=== PATIENT | male | born 1975 | race Caucasian/White ===

== ENCOUNTER 2017-01-11 14:18 | Emergency (ER) | payer MEDICAID, OTHER ==
[~2017-01-11] VITALS: Ht 172.7 cm; Wt 80.0 kg
[2017-01-11 14:21] VITALS: BP 182/122; PULSE 82; RESP 20; TEMP 97.8; O2SAT 99
[2017-01-11 14:23] VITALS: BP 190/119
--- NOTE | 2017-01-11 15:07 | RADRPT ---
EXAM DATE/TIME: 01/11/2017 15:00 [facility] COMPARISON: No previous studies available for comparison. INDICATIONS : Patient fell off of ladder landing on right wrist and hand. Pain and swelling to right wrist. MEDICAL HISTORY : None. SURGICAL HISTORY : None. ENCOUNTER: Initial ACUITY: 4 - 6 days PAIN SCORE: 8/10 LOCATION: Right Wrist FINDINGS: Minimal T-shaped fracture distal radius with mild impaction. Ulnar styloid is evident. Minimal dors al displacement. CONCLUSION: After fracture distal radius and ulna with minimal impaction. Lew Antony MD FACR on January 11, 2017 at 15:05 Board Certified Radiologist. This report was verified electronically.
--- NOTE | 2017-01-11 15:08 | RADRPT ---
EXAM DATE/TIME: 01/11/2017 15:00 [facility] COMPARISON: No previous studies available for comparison. INDICATIONS : Patient fell off of ladder, landing on right hand and wrist. Swelling and pain in right hand. MEDICAL HISTORY : None. SURGICAL HISTORY : None. ENCOUNTER: Initial ACUITY: 4 - 6 days PAIN SCORE: 2/10 LOCATION: Right Hand FINDINGS: Three view examination of the right hand demonstrates no soft tissue swelling, dislocation, or fractu re. The carpal bones appear intact. The interphalangeal and metacarpophalangeal joints are intact. Bony mineralization is normal. CONCLUSION: 1. Negative for carpal fracture. No deformity fifth metacarpal 2. Impacted distal radius extending into the radiocarpal joint. Lew Antony MD FACR on January 11, 2017 at 15:06 Board Certified Radiologist. This report was verified electronically.
[2017-01-11 15:26] VITALS: BP 181/115; PULSE 79; RESP 19; O2SAT 100
[2017-01-11] MEDS ORDERED: ACETAMINOPHEN/HYDROcodone 325 MG/5 MG TAB PO ONE (15:30)
[2017-01-11] MEDS ORDERED: HYDR-3799 PO (15:34)
[2017-01-11] MEDS ORDERED: METO50TA PO (15:34)
--- NOTE | 2017-01-11 15:38 | PD ---
HPI Chief Complaint: Injury Time Seen by Provider: 15:27 Travel History International Travel<30 days: No Contact w/Intl Traveler<30days: No Traveled to known affect area: No History of Present Illness HPI 41-year-old male with history of hypertension who is right handed, presents to the emergency department for evaluation of right wrist pain. Patient states 4 days ago he fell off a ladder, bracing his fall with an outstretched right arm. He experienced immediate wrist pain but did not get it evaluated. Patient has been persistent over the last 4 days, it is exacerbated with movement. Rates it about a 6 out of 10 to an 8 out of 10. Denies any fever or chills. Alterations in sensation or limitations range of motion. No other symptoms to report. PFSH Past Medical History Autoimmune Disease: No Blood Disorders: No Anxiety: Yes Depression: Yes Cancer: No Cardiovascular Problems: No Diminished Hearing: No Endocrine: No Genitourinary: No Hepatitis: Yes (HEP C) Hypertension: Yes Kidney Stones: Yes Musculoskeletal: Yes (CELLULITIS HX R FOREARM) Neurologic: No Psychiatric: No Respiratory: No Migraines: Yes Past Surgical History Other Surgery: Yes Social History Alcohol Use: Yes (occassionally) Tobacco Use: Yes (1 PPD) Substance Use: Yes (opiates and heroin) Allergies-Medications (Allergen,Severity, Reaction): Coded Allergies: morphine (Verified Allergy, Unknown, 01/11/17) Reported Meds & Prescriptions Reported Meds & Active Scripts Active Ibuprofen 800 Mg Tab 800 Mg PO Q8H PRN Reported Hydralazine HCl 25 Mg Tablet 25 Mg PO TID Metoprolol Tartrate 50 Mg Tab 50 Mg PO BID Review of Systems Except as stated in HPI: all other systems reviewed are Neg Physical Exam Narrative GENERAL: Well-nourished, well-developed male patient in no acute distress SKIN: Focused skin assessment warm/dry. HEAD: Normocephalic. EYES: No scleral icterus. No injection or drainage. NECK: Supple, trachea midline. No JVD or lymphadenopathy. CARDIOVASCULAR: Regular rate and rhythm without murmurs, gallops, or rubs. RESPIRATORY: Breath sounds equal bilaterally. No accessory muscle use. EXTREMITY: There is swelling and tenderness of the right distal forearm and wrist. There is no obvious deformity. The skin is intact. Flexion and extension of the fingers is normal. The fingers are warm and well perfused. Sensation to light touch is intact in the hand. BACK: Nontender without obvious deformity. No CVA tenderness. Data Data Last Documented VS Vital Signs Date Time Temp Pulse Resp B/P (MAP) Pulse Ox O2 Delivery O2 Flow Rate FiO2 01/11/17 16:27 181/110 (133) 01/11/17 15:26 19 Room Air 01/11/17 15:26 79 100 01/11/17 14:21 97.8 Orders Orders Hand, Complete ([id number]) (01/11/17 14:36) Wrist, Complete ([id number]) (01/11/17 14:36) Acetamin-Hydrocod 325-5 Mg (Gibson 5-325 (01/11/17 15:30) Splint Or Brace Apply/Monitor (01/11/17 15:27) Ketorolac Inj (Toradol Inj) (01/11/17 15:45) Fiberglass Sugartong Sp Ad Arm (01/11/17 ) Sling Cradle Arm (01/11/17 ) MDM Medical Decision Making Medical Screen Exam Complete: Yes Emergency Medical Condition: Yes Medical Record Reviewed: Yes Differential Diagnosis Fracture versus sprain versus contusion versus dislocation Narrative Course 41-year-old male presents to emergency department for evaluation right wrist pain. X-ray imaging is complete patient is treated for pain. Last Impressions Wrist X-Ray 01/11/171435 Signed Impressions: Service Date/Time: Wednesday, January 11, 2017 15:00 - CONCLUSION: After fracture distal radius and ulna with minimal impaction. Lew Antony MD FACR Hand X-Ray 01/11/171435 Signed Impressions: Service Date/Time: Wednesday, January 11, 2017 15:00 - CONCLUSION: 1. Negative for carpal fracture. No deformity fifth metacarpal 2. Impacted distal radius extending into the radiocarpal joint. Lew Antony MD FACR Patient is placed in a sugar tong splint and instructed to follow-up with benefit specialist. He is counseled on care. He agrees to return immediately with any acute worsening symptoms. Diagnosis Primary Impression: Wrist fracture, right Qualified Codes: S62.101A - Fracture of unspecified carpal bone, right wrist, initial encounter for closed fracture Referrals: Orthopaedic Surgeon Primary Care Physician Patient Instructions: General Instructions, Wrist Fracture in Adults (GEN) Additional Instructions: Ice and elevate to reduce pain and swelling Do not remove your splints Do not get it wet Seek orthopedic evaluation. Call this week for an appointment Return immediately to the emergency department with any acute worsening of symptoms Med/Other Pt SpecificInfo: Prescription(s) given Scripts Ibuprofen (Ibuprofen) 800 Mg Tab 800 MG PO Q8H Y for Pain/Inflammation, #30 TAB 0 Refills Prov: Julianne Jensen 01/11/17 Disposition: 01 DISCHARGE HOME Condition: Stable Julianne Jensen Jan 11, 2017 15:38
[2017-01-11] MEDS ORDERED: KETOROLAC TROMETHAMINE 60 MG/2 ML (IM) VIAL IM ONE (15:45)
[2017-01-11] MEDS ORDERED: IBUP800T23 PO (16:05)
[2017-01-11 16:27] VITALS: BP 181/110
== END 2017-01-11 16:29 | disposition home or self-care (01) ==
LOC: NEPD 14:18
DX: S62.101A Fracture of unspecified carpal bone, right wrist, initial encounter for closed fracture (principal); W11.XXXA Fall on and from ladder, initial encounter
CPT/HCPCS: 29125; 73110; 73130; 96372; 99284; J1885